=== PATIENT | female | born 1985 | race Caucasian/White ===

== ENCOUNTER → 2016-09-04 10:15 | Outpatient (CLI) | payer MEDICAID ==
[~2016-09-04 10:15] MED LIST: HUMULIN N100 U/ML; HUMULIN R100 U/ML; PRENATAL COMPLE1 TAB PO
[2016-10-21 14:13] VITALS: BMI 54.7
== END | disposition home or self-care (01) ==
LOC: D.LDO 10:15
DX: O24.913 Unspecified diabetes mellitus in pregnancy, third trimester (principal); Z3A.32 32 weeks gestation of pregnancy

== ENCOUNTER → 2016-09-08 11:38 | Outpatient (CLI) | payer MEDICAID ==
[2016-10-21 14:13] VITALS: BMI 54.7
== END | disposition home or self-care (01) ==
LOC: D.LDO 11:38
DX: Z34.80 Encounter for supervision of other normal pregnancy, unspecified trimester (principal)

== ENCOUNTER → 2016-09-11 10:10 | Outpatient (CLI) | payer MEDICAID ==
[2016-10-21 14:13] VITALS: BMI 54.7
== END | disposition home or self-care (01) ==
LOC: D.LDO 10:10
DX: O24.913 Unspecified diabetes mellitus in pregnancy, third trimester (principal); Z3A.33 33 weeks gestation of pregnancy

== ENCOUNTER → 2016-09-15 10:15 | Outpatient (CLI) | payer MEDICAID ==
[2016-10-21 14:13] VITALS: BMI 54.7
== END | disposition home or self-care (01) ==
LOC: D.LDO 10:15
DX: O24.913 Unspecified diabetes mellitus in pregnancy, third trimester (principal); Z3A.34 34 weeks gestation of pregnancy

== ENCOUNTER → 2016-09-18 10:35 | Outpatient (CLI) | payer MEDICAID ==
[2016-10-21 14:13] VITALS: BMI 54.7
== END | disposition home or self-care (01) ==
LOC: D.LDO 10:35
DX: O24.419 Gestational diabetes mellitus in pregnancy, unspecified control (principal); Z3A.34 34 weeks gestation of pregnancy

== ENCOUNTER → 2016-09-22 10:13 | Outpatient (CLI) | payer MEDICAID ==
[~2016-09-22 10:13] MED LIST changes: +HYDROCODONE-APA1 TAB PO; +MOTRIN600 MG PO
== END | disposition home or self-care (01) ==
LOC: D.LDO 10:13
DX: O24.419 Gestational diabetes mellitus in pregnancy, unspecified control (principal); Z3A.35 35 weeks gestation of pregnancy

== ENCOUNTER → 2016-09-25 12:55 | Outpatient (CLI) | payer MEDICAID | END | disposition home or self-care (01) | LOC: D.LDO 12:55 | DX: O24.419 Gestational diabetes mellitus in pregnancy, unspecified control (principal); Z3A.35 35 weeks gestation of pregnancy ==

== ENCOUNTER 2016-09-27 05:07 | Emergency (ER) | payer MEDICAID | END 2016-09-27 06:00 | disposition home or self-care (01) | LOC: D.ER 05:07 | DX: R51 Headache (principal) ==

== ENCOUNTER → 2016-09-29 08:38 | Outpatient (CLI) | payer MEDICAID | END | disposition home or self-care (01) | LOC: D.LDO 08:38 → D.ER 08:38 | DX: O24.419 Gestational diabetes mellitus in pregnancy, unspecified control (principal); Z3A.36 36 weeks gestation of pregnancy ==

== ENCOUNTER → 2016-10-02 11:20 | Outpatient (CLI) | payer MEDICAID | END | disposition home or self-care (01) | LOC: D.LDO 11:20 | DX: O24.913 Unspecified diabetes mellitus in pregnancy, third trimester (principal); Z3A.36 36 weeks gestation of pregnancy ==

== ENCOUNTER → 2016-10-06 08:46 | Outpatient (CLI) | payer MEDICAID | END | disposition home or self-care (01) | LOC: D.LDO 08:46 | DX: O24.913 Unspecified diabetes mellitus in pregnancy, third trimester (principal); Z3A.37 37 weeks gestation of pregnancy ==

== ENCOUNTER → 2016-10-09 13:17 | Outpatient (CLI) | payer MEDICAID | END | disposition home or self-care (01) | LOC: D.LDO 13:17 | DX: O24.913 Unspecified diabetes mellitus in pregnancy, third trimester (principal); Z3A.37 37 weeks gestation of pregnancy ==

== ENCOUNTER → 2016-10-13 09:14 | Outpatient (CLI) | payer MEDICAID | END | disposition home or self-care (01) | LOC: D.LDO 09:14 | DX: O24.419 Gestational diabetes mellitus in pregnancy, unspecified control (principal); Z3A.38 38 weeks gestation of pregnancy; O36.8190 Decreased fetal movements, unspecified trimester, not applicable or unspecified ==

== ENCOUNTER → 2016-10-16 09:33 | Outpatient (CLI) | payer MEDICAID ==
[~2016-10-16 09:33] MED LIST changes: -HYDROCODONE-APA1 TAB PO; -MOTRIN600 MG PO
[2016-10-20 06:16] VITALS: BMI 54.8
== END | disposition home or self-care (01) ==
LOC: D.LDO 09:33
DX: O24.419 Gestational diabetes mellitus in pregnancy, unspecified control (principal); Z3A.38 38 weeks gestation of pregnancy

== ENCOUNTER → 2016-10-17 09:28 | Outpatient (CLI) | payer MEDICAID ==
[2016-10-20 06:16] VITALS: BMI 54.8
== END | disposition home or self-care (01) ==
LOC: D.LDO 09:28
DX: Z34.83 Encounter for supervision of other normal pregnancy, third trimester (principal); Z3A.38 38 weeks gestation of pregnancy

== ENCOUNTER 2016-10-20 05:43 | Inpatient (IN) | payer MEDICAID ==
[~2016-10-20] VITALS: Ht 160 cm; Wt 140.2 kg
[2016-10-20] VITALS (13 sets, daily range): BP systolic 127–151; BP diastolic 77–105; BMI 54.8
--- NOTE | ~2016-10-20 | OP ---
PATIENT NAME: ANYA GIBBONS MEDICAL RECORD: [id number] :87 LOCATION:[facility] ADMISSION DATE:10/20/16 SURGEON: ALAN YOUSSEF MD DATE OF OPERATION: 10/20/2016 PREOPERATIVE DIAGNOSES: 1. Term intrauterine at 39 weeks. 2. History of previous section. 3. A2 gestational diabetes. POSTOPERATIVE DIAGNOSES: 1. Term intrauterine at 39 weeks. 2. History of previous section. 3. A2 gestational diabetes. PROCEDURE: Repeat low transverse section. SURGEON: Alan Youssef MD. ESTIMATED BLOOD LOSS: 1000 cc. INTRAVENOUS FLUIDS: Per anesthesia record. SPECIMENS: Placenta and cord for gases. COMPLICATIONS: None apparent. FINDINGS: 1. Viable male , Apgars 9 at 1 and 9 at 5. 2. Placenta delivered manually intact, 3-vessel cord noted. 3. Grossly normal adnexa bilaterally. PROCEDURE IN DETAIL: The patient was taken to the operating room where spinal anesthesia was achieved without difficulty. The patient was then prepped and draped in normal sterile fashion in the dorsal supine position. SCDs were on and functioning normally and a Quiñones catheter was placed and was draining freely. At this point, a repeat Pfannenstiel skin incision was made, extended downward to the underlying subcutaneous fat to level of the fascia. This was then nicked in the midline and extended bilaterally using the Prasda scissors and Bovie cautery. The superior and inferior aspects of the fascial incision were then grasped with Nicko clamps times 2, tented upward, and sharply dissected from the underlying rectus muscle using the Bovie cautery and Prasad scissors. The rectus muscles were then sharply including the midline of the pyramidalis muscle. The peritoneum was entered at the superior aspect of the incision using a finger with visualization of the bladder. Further dissection was performed of the fused rectus muscle. The peritoneal incision was stretched and excised bilaterally using the Bovie cautery. A bladder blade was placed into the pelvis. A low transverse incision was made and extended superiorly and inferiorly using the Pelosi method. At this point, the infant's head was found to be extended. A Kiwi self-contained vacuum was then used to correct head position to flex at which point the 's head was delivered atraumatically. Following delivery of the infant, the vacuum was removed. The was bulb suctioned. Cord was clamped times 2 and cut and the was handed to the awaiting nursery team. Cord was then obtained for gases and the placenta was delivered manually intact. The accessory lobe was identified and OPERATIVE REPORT [id number] ANYA GIBBONS the uterus found exteriorized and cleaned of all clots and debris. The uterine incision was repaired with 0 Vicryl in a running locked fashion times 2. Posterior cul-de-sac was then thoroughly irrigated. The uterus was replaced into the pelvis and the anterior cul-de-sac was then thoroughly irrigated with good hemostasis noted from the incision. FloSeal was placed on the uterine incision. Counts were correct times 2. The fascia was repaired with 0 loop PDS times 1. The subcutaneous fat was reapproximated using 0 plain gut suture and the skin was repaired with adry. The patient tolerated the procedure well, was transferred to postanesthesia recovery stable without incident. TRANSINT:[id number] Voice Confirmation ID: [id number] DOCUMENT ID: [id number] ALAN YOUSSEF MD CC: [id number] DICTATION DATE: 10/21/16651 MANAGER BUSINESS PROCESS: 10/21/16 1204 ADM IN [facility] [address] [place] [address]
[2016-10-20] MEDS ORDERED: PRENATAL COMPLE1 TAB PO (06:12)
[2016-10-20] MEDS ORDERED: HUMULIN R100 U/ML (06:14)
[2016-10-20] MEDS ORDERED: HUMULIN N100 U/ML (06:14)
[2016-10-20 06:33] LABS: HEMATOCRIT 36.5 % (36.0-48.0); HEMOGLOBIN 11.9 g/dL (12-16); MCHC 32.6 g/dL (31.0-37.0); MEAN PLATELET VOLUME 10.7 fL (7.4-10.4); RBC 4.1 10x6/uL (4.00-5.40); RDW 15.3 % (11.5-14.5); WBC 15.8 10x3/uL (4.8-10.8)
[2016-10-20 07:05] LABS: APPEARANCE CLEAR (CLEAR); BACTERIA MODERATE /hpf (NONE SEEN); BILIRUBIN NEGATIVE (NEGATIVE); COLOR YELLOW (YELLOW); GLUCOSE NEGATIVE (NEGATIVE); GRANULAR CAST 0-5 /lpf (NONE SEEN); KETONE NEGATIVE (NEGATIVE); LEUKOCYTE ESTERASE TRACE (NEGATIVE); MUCUS <1+ /lpf (NONE SEEN); NITRITE NEGATIVE (NEGATIVE); PROTEIN 1+ mg/dL (NEGATIVE); SPECIFIC GRAVITY 1.015 (1.005-1.020); UROBILINOGEN NORMAL (NORMAL); WHITE CELLS - URINE 0-5 /hpf (0-5)
--- NOTE | 2016-10-20 08:21 | NUR ---
BABY BORN AT 0809
--- NOTE | 2016-10-20 09:50 | NUR ---
PATIENT IS AWAKE AND ALERT, RECEIVED TO UNIT IN HER BED ACCOMPANIED BY NURSING STAFF. HER VSS. FSBS REPORTED TO BE 74. PAIN RATED AN 8. TARPER OF DILAUDID INITIATED, PATIENT UNDERSTANDS INSTRUCTIONS FOR USE AEB DEMONSTRATION AND VERBAL RESPONSE. HER BLEEDING IS SCANT, PERIPAD CHANGED. UNABLE TO PALPATE FUNDUS ADEQUATELY DUE TO PAIN AND OBESITY. TORADOL GIVEN IV. 35CC OF CONCENTRATED URINE IN THE UROMETER. IVF OF NS WITH PITOCIN INFUSING PER ORDERS. FOB AND HER MOTHER AT THE BEDSIDE I LEFT. SHE IS TALKATIVE AND WITHOUT STATED NEEDS. SHE IS CRUNCHING ON ICE AT THIS TIME. CALL LIGHT IS WITHIN HER REACH AND SHE HAS BEEN ORIENTED TO HER ROOM. MONITORING.
--- NOTE | 2016-10-20 10:17 | NUR ---
PATIENT RATING HER PAIN A 4 AT THIS TIME. CAFE ASSISTANT IN USE. BLEEDING IS SMALL. FF AND MIDLINE. WAS ABLE TO PALPATE. WATER AND ORANGE JUICE GIVEN PER REQUEST. CALL LIGHT IS WITHIN REACH. HER MOTHER IS AT THE BEDSIDE.
--- NOTE | 2016-10-20 10:30 | NUR ---
UNABLE TO PALPATE FUNDUS CONFIDENTLY. SHE HAS LIGHT BLEEDING. URINE OP MINIMAL. MONITORING CLOSELY. IVF INFUSING. BLOOD PRESSURE STABLE.
--- NOTE | 2016-10-20 10:50 | NUR ---
L/D NURSE OVER TO CHECK FUNDUS AND BLEEDING. FF U/1.
--- NOTE | 2016-10-20 11:15 | NUR ---
REPORTED THE PATIENT'S URINE OP OF 15CC SINCE RECEIVING HER FROM SURGERY. 500CC NS BOLUS ORDERED. WILL CHECK FSBS.
--- NOTE | 2016-10-20 12:08 | NUR ---
SPOKE WITH DR. GONZALEZ. REPORTED THE PATIENT'S URINE OP, BLOOD PRESSURES AND BLOOD SUGAR TAKEN AT 1115. WILL CHANGE THE REECE CATHETER OUT. CONTINUE TO MONITOR CLOSELY. REPORTED LIMITED ABILITY TO FEEL THE FUNDUS. HE CONFIRMS THIS IS TO BE EXPECTED WITH HER GIRTH. BLEEDING REMAINS SCANT. URINE OP 100 THIS LAST HOUR.
--- NOTE | 2016-10-20 13:00 | NUR ---
BP NOTED. PATIENT AWAKE AND ALERT, REECE CATHETER PATENT WITH 20CC OF ORANGE URINE TO THE UROMETER. EMPTIED IT INTO THE COLLECTION BAG. FOB REMAINS AT THE BEDISDE. SHE RECEIVED A CL DIET. STATES THAT HER PAIN IS IN HER BACK AND RATES IT A 3-4. SHE IS CHEERFUL AND UNDERSTANDS THAT WE ARE MONITORING HER URINE OUTPUT.
[2016-10-20 13:50] LABS: BASOPHILS 0.1 % (0-2); EOSINOPHILS 0.3 % (0-7); HEMATOCRIT 33.1 % (36.0-48.0); HEMOGLOBIN 10.7 g/dL (12-16); IMMATURE GRANULOCYTES 1.3 % (0-5); LYMPHOCYTES 21.7 % (15-50); MCH 28.8 pg (26.0-34.0); MCHC 32.3 g/dL (31.0-37.0); MONOCYTES 5.7 % (2-11); NEUTROPHILS 70.9 % (40-80); PLATELET COUNT 280 10x3/uL (130-400); RBC 3.72 10x6/uL (4.00-5.40); RDW 15.2 % (11.5-14.5); WBC 16.4 10x3/uL (4.8-10.8)
--- NOTE | 2016-10-20 16:05 | NUR ---
INSENTIVE SPIROMETER GIVEN AND EXPLAINED TO PT. USING IT WITHOUT PROBLEMS.
--- NOTE | 2016-10-20 17:29 | NUR ---
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 very talkative. bardales patent. conentrated urine noted. 360ml. since 1200
--- NOTE | 2016-10-20 19:15 | NUR ---
AWAKE DURING INITIAL ROUNDS. INTRODUCED SELF. V/S TAKEN. ASSESSMENT DONE. STATUS POST REPEAT C/S TODAY. . LOW TRANSVERSE INCISION WITH DRESSING INTACT. IVF NS + 20 units PITOCIN TO R FA. IV SITE OK. ON DILAUDID BILINGUAL CUSTOMER SERVICE SPECIALIST FOR PAIN MANAGEMENT. REECE CATH TO DRAINAGE BAG PATENT. REFUSED ICVE PACK TO ABD. SCD's TO BOTH LOWER EXTREMITIES TO PREVENT DVT.
--- NOTE | 2016-10-20 21:30 | NUR ---
REECE/SHAHNAZ-CARE DONE. MODERATE TO LIGHT LOCHIA RUBRA. SHAHNAZ-PAD CHANGED. FOB IN THE ROOM HOLDING .
--- NOTE | 2016-10-20 22:04 | NUR ---
FSBS 107mg/dl.
[2016-10-21] VITALS (7 sets, daily range): BP systolic 129–154; BP diastolic 72–98; Ht 160 cm; Wt 140.2 kg
--- NOTE | 2016-10-21 00:19 | NUR ---
V/S RECHECKED. BP 143/82. REECE CATH BAG EMPTIED. IV PUMP CLEARED.
--- NOTE | 2016-10-21 02:10 | NUR ---
EYES CLOSED. LEFT UNDISTURBED.
--- NOTE | 2016-10-21 03:40 | NUR ---
BABY TO MOM's ROOM IN OPEN CRIB.
--- NOTE | 2016-10-21 04:28 | NUR ---
V/S RE-CHECKED. REECE CATH BAG EMPTIED 1800cc URINE. IV PUMP CLEARED. BROUGHT BABY BACK TO THE NURSERY.
--- NOTE | 2016-10-21 06:00 | NUR ---
SLEPT FAIRLY WELL DURING THE NIGHT. CONTINUING PLAN OF CARE.
--- NOTE | 2016-10-21 06:30 | NUR ---
EPIC WILLOW ANALYST HERE TO DRAW AM LAB.
[2016-10-21 06:55] LABS: BASOPHILS 0.2 % (0-2); EOSINOPHILS 0.5 % (0-7); HEMATOCRIT 34.7 % (36.0-48.0); HEMOGLOBIN 10.9 g/dL (12-16); IMMATURE GRANULOCYTES 1.4 % (0-5); LYMPHOCYTES 23.3 % (15-50); MCH 28.3 pg (26.0-34.0); MCHC 31.4 g/dL (31.0-37.0); MCV 90.1 fL (80.0-100.0); MEAN PLATELET VOLUME 10.6 fL (7.4-10.4); NEUTROPHILS 68.6 % (40-80); PLATELET COUNT 266 10x3/uL (130-400); RBC 3.85 10x6/uL (4.00-5.40); RDW 15.5 % (11.5-14.5); WBC 13.2 10x3/uL (4.8-10.8)
[2016-10-21 07:28] LABS: RAPID PLASMA REAGIN Non Reactive (Non Reactive)
--- NOTE | 2016-10-21 07:35 | NUR ---
RECEIVED IN BED. AWAKE. REPOSITIONED IN BED. LOCHIA LIGHT. LUNGS CLEAR BILAT. SCD'S BILAT PUMP ON. IV PATENT TO RT FOREARM. SITE WITHOUT EDEMA OR ERYTHEMA. PERIPAD TO INCSION SITE( DRESSING REMOVED BY DR Aristides GONZALEZ DURING EXAM THIS AM).
--- NOTE | 2016-10-21 09:03 | NUR ---
REECE REMOVED AT PT'S REQUEST.
--- NOTE | 2016-10-21 10:18 | NUR ---
PT SITTING ON SIDE OF BED. FAMILY AT BEDSIDE. HAS VOIDED X1 SINCE REECE REMOVAL 400ML
--- NOTE | 2016-10-21 12:45 | NUR ---
PT VOMITED LUNCH. REG DIET. APPROX 300ML LIQUID. PT SITTING UP IN CHAIR
--- NOTE | 2016-10-21 13:52 | NUR ---
pt vomited again approx 350ml. vomited for 3rd time. pt encoraged to just do ice chips until dr orders obtained.
--- NOTE | 2016-10-21 14:40 | NUR ---
med given for pain 11/28. no nausea present.
--- NOTE | 2016-10-21 15:52 | NUR ---
pt staters pain not improving much. request additional med.
--- NOTE | 2016-10-21 18:00 | NUR ---
PT FEEDING BABY. STATES PAIN IS UNCOMFORTABLE. WILL TAKE PAIN MED WHEN TIME FOR ADMINISTRATION. PT STATES SHE WILL WAIT FOR NEXT DOSE
--- NOTE | 2016-10-21 19:20 | NUR ---
ASSESSMENT PER FLOW SHEET, SALINE LOCK IN RIGHT FA INTACT WITH NO REDNESS OR EDEMA, FF, ML, U/1, PT REPORTS LITE BLEEDING WITH NO CLOTS, PT REPORTS FLATUS, NO BM, VOIDING BY SELF WITH NO DIFFICULTY, AND DENIES N/V SINCE EARLIER, BIKINI INC WITH MONTY CDI WITH DRAINAGE NOTED, SHAHNAZ PAD OVER INC FOR COMFORT AND MOISTURE CONTROL, PT RATES INC PAIN 06/30, DENIES NEEDS, BABY IN OPEN CRIB CART AT BEDSIDE
--- NOTE | 2016-10-21 19:35 | NUR ---
INTRODUCED SELF AND OTHER NURSE ON DUTY TO PATIENT. PATIENT REQUEST CHOCOLATE PUDDING. OBTAINED PUDDING AND SPOON. DID PATIENTS TEMP FIRST PRIOR TO EATING PUDDING. VITALS ARE WNL. PATIENT HAS NO OTHER NEEDS REQUESTED AT THIS TIME.
--- NOTE | 2016-10-21 20:18 | NUR ---
PT HOLDING BABY, DENIES NEEDS AT THIS TIME
--- NOTE | 2016-10-21 21:30 | NUR ---
PT FEEDING BABY, DENIES NEEDS AT THIS TIME
--- NOTE | 2016-10-21 22:05 | NUR ---
PT ASSISTANT MECHANIC LIGHT, PT REQUESTED AND SERVED FRESH H20, RATES INC PAIN 07/31, BABY BACK IN NS, DENIES NEEDS AT THIS TIME
--- NOTE | 2016-10-21 22:35 | NUR ---
LOOKING OVER ORDERS, ORDERS NOTED TO DO FSBS Q2H, JAMARCUS BLAND RN, CHARGE NURSE, REPORTS THAT SHE HAS TO CALL DR GONZALEZ ON ANOTHER PT, WILL VERIFY ORDER OF FSBS
--- NOTE | 2016-10-21 23:00 | NUR ---
TOOK PATIENT A SANDWICH TRAY PER HER REQUEST. REMOVED GRAPES FROM TRAY. WILL CHECK PATIENTS BLOOD SUGAR IN TWO HOURS. ( AROUND 1AM) VITALS COMPLETED. WNL. PATIENT IS ABLE TO ABULATE BY SELF. HER INFANT IS IN THE NURSERY- AND SHE PLANS TO DO THE 0600 FEEDING HERSELF. PATIENT RATES HER ABDOMINAL PAIN AT A 4. ASKED IF SHE COULD HAVE HER PAIN MEDS. NORCO GIVEN PO. WITH ICE WATER. NO OTHER NEEDS VOICED AT THIS TIME.
--- NOTE | 2016-10-22 01:00 | NUR ---
DSTICK WAS 121 2 HOURS AFTER EATING SANDWICH. PATIENT IS IN AND OUT OF SLEEP WHILE DRAWING BLOOD SUGAR SHE WAS SNORING. PAIN WAS 0 AT THIS TIME. NO NEEDS VOICED. RESTING WITH EYES CLOSED.
--- NOTE | 2016-10-22 02:05 | NUR ---
PT AWAKE, REQUESTED AND SERVED FRESH H20, RATES INC PAIN 07/31, DENIES FURTHER NEEDS
[2016-10-22 04:10] VITALS: BP 144/74
--- NOTE | 2016-10-22 04:10 | NUR ---
PATIENT RESTING WITH EYES CLOSED. VITALS ARE WNL. PATIENT EASILY AROUSABLE BUT RESTING WITH EYES CLOSED. NO NEEDS VOICED.
--- NOTE | 2016-10-22 05:55 | NUR ---
NURSERY CALLED REQUEST TO GO OUT TO MOTHER TO BE FED. TOOK TO MOTHERS ROOM. VERIFIED ID BANDS. MOTHER USING REST ROOM. POSIONED INFANT WHERE MOTHER CAN SEE BABIES FACE. NO DISTRESS NOTED. MOTHER STATES SHE HAS NO NEEDS.
--- NOTE | 2016-10-22 07:00 | NUR ---
SHIFT REPORT TO MARIANO HOLDEN RN
--- NOTE | 2016-10-22 07:15 | NUR ---
PT WAS RECEIVED LYING IN BED. SHE OFFERS NO COMPLAINTS. PT IS UP AMBULATING IN ROOM. GEN- AWAKE AND ALERT. LUNGS- CLEAR. HEART- RRR. ABD- SOFT WITH TENDERNESS. BIKINI LINE INCISION WITH MONTY. CLEAN , DRY AND INTACT. I PLACED SHAHNAZ PAD OVER INCISION AND INSTRUCTED PT ON INCISION CARE. EXT WITH MINIMAL EDEMA. SHE IS VOIDING WITHOUT DIFFICULTY. SHE HAS A SALINE LOCK R FOREARM- PATENT. BED IS LOW, SIDE RAILS UP X 2 AND CALL LIGHT IN REACH.
[2016-10-22 07:30] VITALS: BP 145/111
--- NOTE | 2016-10-22 07:40 | NUR ---
DR GONZALEZ IS HERE TO SEE PT. NEW ORDERS REVIEWED.
--- NOTE | 2016-10-22 09:00 | NUR ---
BABY IS AT BEDSIDE. ALSO AT BEDSIDE. PT OFFERS NO COMPLAINTS AT THIS TIME.
[2016-10-22 12:00] VITALS: BP 143/90
--- NOTE | 2016-10-22 12:11 | NUR ---
PT IS SITTING ON SIDE OF BED FEDING BABY. REQUEST PAIN MED. STATES PAIN IS A 6. PAIN MED GIVEN
[2016-10-22] MEDS ORDERED: HYDROCODONE-APA1 TAB PO (13:59)
[2016-10-22] MEDS ORDERED: MOTRIN600 MG PO (13:59)
== END 2016-10-22 15:50 | disposition home or self-care (01) | DRG 766 ==
LOC: D.LD 05:43 → D.WS 05:43 → D.SDCHOLD 07:30 → D.WS 09:27 → D.SDCHOLD 12:30 → D.WS 10-22 15:50
PROVIDERS: Obstetrics & Gynecology; ADMIT Obstetrics & Gynecology
PROC: 10D00Z1 Extraction of Products of Conception, Low, Open Approach (ICD-10-PCS; principal; 2016-10-20 07:30)
DX: O24.429 Gestational diabetes mellitus in childbirth, unspecified control (principal); Z3A.39 39 weeks gestation of pregnancy; Z37.0 Single live birth; O34.219 Maternal care for unspecified type scar from previous cesarean delivery; O99.214 Obesity complicating childbirth; O43.193 Other malformation of placenta, third trimester